=== PATIENT | female | born 1970 | race Caucasian/White ===

== ENCOUNTER → 2018-07-12 12:58 | Outpatient (CLI) | payer BC, MEDICARE ==
[2014-11-09 04:37] VITALS: BMI 46.3
[~2018-07-12 12:58] MED LIST: ACETAMINOPHEN325 MG PO; ALENDRONATE SOD70 MG PO; AUGMENTIN PO; CYMBALTA60 MG PO; FOLIC ACID1 MG PO; GLYBURIDE MICRON6 MG PO; HUMULIN R100 U/ML SC; HYDROCODONE-APA1 TAB PO; KLONOPIN1 MG PO; LANTUS INSULIN10 ML SC; LANTUS INSULIN10 ML SQ; LASIX20 MG PO; NEURONTIN800 MG PO; NEXIUM40 MG PO; NIZORAL200 MG PO; NOVOLOG100 U/M1 SC; ORAPRED ODT10 MG/TAB PO; PHENERGAN25 M1 PO; POTASSIUM CHLO10 ME1 PO; PREDNISONE20 MG PO; PRILOSEC20 MG PO; PROCRIT/EP2000 UNITS SQ; PROTONIX40 MG PO; PROVENTIL/2.5 MG/3 M NEB; PULMICORT0.5 MG/21; SINGULAIR10 MG PO; SYNTHROID75 MCG PO; ULTRAM50 MG PO; ZYRTEC10 MG PO; [UNRECOGNIZED DRUG - OTHER] PO
== END | disposition home or self-care (01) ==
LOC: D.NM 12:58
PROVIDERS: ATTEND Internal Medicine Nephrology
DX: D86.9 Sarcoidosis, unspecified (principal); R10.9 Unspecified abdominal pain